=== PATIENT | male | born 1975 | race Caucasian/White ===

== ENCOUNTER 2022-12-07 20:44 | Emergency (ER) | payer BC ==
[2022-12-07] MEDS ORDERED: HYDROmorphone 1 MG/ML Syringe IVPUSH ONE ×2 (21:18→23:00)
[2022-12-07] MEDS ORDERED: Ondansetron 4 MG/2 ML SDV IVPUSH ONE (21:18)
[2022-12-07] MEDS ORDERED: Iopamidol 612 MG/ML 100 ML Bottle IVPUSH ONE (22:10)
== END 2022-12-07 23:40 | disposition home or self-care (01) ==
LOC: JD.ED 20:44
DX: S42.202A Unspecified fracture of upper end of left humerus, initial encounter for closed fracture (principal); S42.132A Displaced fracture of coracoid process, left shoulder, initial encounter for closed fracture; I10 Essential (primary) hypertension; V80.010A Animal-rider injured by fall from or being thrown from horse in noncollision accident, initial encounter
CPT/HCPCS: 70450; 72125; 73030; 73200; 74177; 96374; 96375; 96376; 99284; J1170; J2405; Q9967; 99282